=== PATIENT | female | born 1970 ===

== ENCOUNTER 2023-02-07 14:05 | Outpatient (CLI) | payer OTHER | END 2023-02-08 08:15 | disposition home or self-care (01) | LOC: MAMO-SONO 14:05 | PROVIDERS: ATTEND Obstetrics & Gynecology Gynecology | DX: N60.19 Diffuse cystic mastopathy of unspecified breast (principal); N60.12 Diffuse cystic mastopathy of left breast; N60.11 Diffuse cystic mastopathy of right breast; N83.9 Noninflammatory disorder of ovary, fallopian tube and broad ligament, unspecified; N83.292 Other ovarian cyst, left side; N83.291 Other ovarian cyst, right side; E55.9 Vitamin D deficiency, unspecified; R87.610 Atypical squamous cells of undetermined significance on cytologic smear of cervix (ASC-US); N87.0 Mild cervical dysplasia; R68.82 Decreased libido; E66.3 Overweight; Z80.3 Family history of malignant neoplasm of breast; N30.00 Acute cystitis without hematuria; N76.2 Acute vulvitis ==